=== PATIENT | male | born 1950 | race Caucasian/White ===

== ENCOUNTER 2022-10-11 06:30 | Day surgery (SDC) | payer OTHER, SELFPAY ==
[2022-10-03 13:19] VITALS: BMI 23.3
[2022-10-11 07:12] VITALS: BMI 22.3
[2022-10-11 07:21] VITALS: BP 138/75; PULSE 76; RESP 16; TEMP 36.2; O2SAT 98
[2022-10-11] MEDS: LACTATED RINGERS 1,000 ML 21 ML IV ×2 (07:27→08:33)
[2022-10-11] MEDS: ACETAMINOPHEN IV 1,000 MG/100 ML VIAL 400 MG IV (07:30)
--- NOTE | 2022-10-11 07:47 | P.OP.PRE_ITS ---
Pre-operative Note COVID-19 Criteria for continued procedure: Expected advancement of disease process, Possibility delay results in more complex future surgery or treatment, Continuing or worsening of significant or severe pain, Deterioration of the patient's condition or overall health and Delay expected to result in less-p ositive ultimate med/surg outcome Interval Note History & Physical reviewed/Exam performed by Physician: Yes Changes to H&P: No
--- NOTE | 2022-10-11 08:27 | SUR.OPER ---
Supine on padded OR bed, head on pillow, arms secured on padded arm boards at <90 degrees abduction, legs uncrossed, safety belt at thigh, tape over blanket over lower legs.
[2022-10-11] MEDS: BUPIVACAINE LIPOSOME 266 MG/20 ML VIAL INJ (08:29)
[2022-10-11] MEDS: CEFAZOLIN 2 GM/100 ML PREMIX 100 ML IV (08:32)
[2022-10-11] MEDS: BUPIVACAINE 0.5% W/ EPI (PF) 30 ML VIAL 15 ML INJ (08:35)
--- NOTE | 2022-10-11 09:53 | PM.OP.1 ---
Operative Date/Time/Diagnoses Date of procedure: 10/11/22 Time of procedure: 09:40 Pre-op diagnosis: Left inguinal hernia Post-op diagnosis: same Procedure & Clinicians Procedure: 1. Left inguinal hernia repair with mesh. 2. Excision left spermatic cord lipoma. Same procedure as scheduled: Yes Indications: 1. Symptomatic left inguinal hernia. Surgeon: Ellen Brink Click Yes if Unassisted: Yes Anesthesia Type: General and Local (0.25% Marcaine with epinephrine and undiluted Exparel 1.33%) Operative Notes Findings: Indirect inguinal hernia sac with associated cord lipoma. External ring greater than half the length of the inguinal canal. Closure Type: primary Specimen(s): none sent Estimated Blood Loss (mL): 2 Blood products transfused: none Procedure in detail: Patient was positioned supine was administered general anesthesia. The abdomen, genitalia, and groin were then prepped and draped in sterile fashion. A solution of 0.25% Marcaine with epinephrine was then used to infiltrate the skin obliquely over the left inguinal canal and regionally in the distribution of the pill inguinal nerve medial to the anterior superior iliac spine. An oblique incision was then made through the skin and division of the subcutaneous fat and Olamide's layer was accomplished using blunt and cautery technique. The conditions of the external oblique fascia were as described above under findings. The external oblique fascia was then further divided parallel to its fibers over the canal. The cord was then mobilized using blunt dissection. Careful examination of the cord identified a tone of peritoneum extending a proximally 1/3 the distance down the cord. The stricture was then carefully isolated reflected superiorly and laterally from the remaining cord structures. The above-described cord lipoma that extended the length and record was and mobilize the collecting laterally and superiorly. The hernia sac was then engaged distally with a hemostatic clamp and the clamp was then rotated repeatedly to obliterate the channel high into the internal ring. A suture ligature of 2 0 PDS was then placed at the base and tied down in standard fashion. The peritoneum in this area was then infiltrated with Exparel. Both ligated hernia sac and the mobilized cord lipoma within tucked into the abdominal space proper. The internal ring was then repaired using a horizontal mattress of 2-0 PDS. A 2 in x 4 in segment of Bard polypropylene mesh was then requested. It was then tailored and fitted appropriately into the inguinal floor. Inferior medial corner of the mesh was then secured to the periosteum of the pubic tubercle with a single 3-0 Prolene. The mesh was then secured along the inguinal ligament inferiorly with interrupted 3-0 Prolene. A split tail was then created and stellate incisions were made to accommodate the cord appropriately. Superior aspect of the mesh was then laid within the space posterior to the rectus sheath in the corners rounded in tailored appropriately. Lateral tails were then positioned over 1 another and secured with a single interrupted 3-0 Monocryl. Gentle traction was applied the left testicle and the cord was positioned appropriately within the canal. External oblique fascia was then reapproximated with running 2 0 PDS. Exparel was then used to infiltrate the rectus sheath as well as the skin creating a regional block laterally. Olamide's fascia was then reapproximated with remaining 2 0 PDS. The skin was reapproximated with a running 4-0 Monocryl. The skin was then cleaned and dried and a small segment of Telfa was tailored appropriately to cover the incision line. Over this a medium transparent Tegaderm dressing was applied. The patient was then awakened, transferred to [facility], then transported recovery in stable condition. Complications: none Post-operative Condition: stable Disposition: PACU Plan for aftercare: Discharge home.
[2022-10-11 09:58] VITALS: BP 148/74; PULSE 81; RESP 19; TEMP 36.2; O2SAT 90
[2022-10-11 10:03] VITALS: BP 146/88; PULSE 75; RESP 12; O2SAT 95
[2022-10-11 10:08] VITALS: BP 130/71; PULSE 81; RESP 12; O2SAT 96
[2022-10-11 10:13] VITALS: BP 147/69; PULSE 71; RESP 14; TEMP 36.1; O2SAT 94
[2022-10-11 10:27] VITALS: BP 133/73; PULSE 69; RESP 14; TEMP 36.1; O2SAT 95
== END 2022-10-11 10:45 | disposition home or self-care (01) ==
PROVIDERS: Referring Provider Specialist; Visit Provider Specialist
PROC: (CPT 49505; principal; 2022-10-11 07:45)
DX: K40.90 Unilateral inguinal hernia, without obstruction or gangrene, not specified as recurrent (principal); D17.6 Benign lipomatous neoplasm of spermatic cord
CPT/HCPCS: 49505; C9290; J0131; J0330; J0690; J1100; J1885; J2405; J2704; J3010